=== PATIENT | male | born 1950 | race Caucasian/White ===

== ENCOUNTER 2017-12-07 10:50 | Day surgery (SDC) | payer OTHER | END 2017-12-07 22:35 | disposition home or self-care (01) | LOC: US 10:50 | PROC: 0JB53ZX Excision of Left Neck Subcutaneous Tissue and Fascia, Percutaneous Approach, Diagnostic (ICD-10-PCS; principal; 2017-12-07) | DX: R22.1 Localized swelling, mass and lump, neck (principal) | CPT/HCPCS: 38505; 76942; 88108 ==

== ENCOUNTER 2025-03-18 11:52 | Inpatient (IN) | payer OTHER ==
[~2025-03-18] VITALS: Ht 190.5 cm; Wt 59.0 kg
[~2025-03-18 11:52] MED LIST: ACET500 PO; OXYACE7.5T PO
[2025-03-18 15:00] LABS: BASOPHILS ABSOLUTE AUTO 0.02 K/mm3 (0.00-0.23); BASOPHILS PERCENT AUTO 0 % (0-2); EOSINOPHILS ABSOLUTE AUTO 0.01 K/mm3 (0.00-0.68); EOSINOPHILS PERCENT AUTO 0 % (0-6); Hematocrit 40.2 % (37.0-53.0); Hemoglobin 13.4 g/dL (13.5-17.5); IMMATURE GRAN ABSOLUTE AUTO 0.02 K/mm3 (0.00-0.10); IMMATURE GRAN PERCENT AUTO 0 % (0-1); LYMPHOCYTES ABSOLUTE AUTO 0.41 K/mm3 (0.84-5.20); LYMPHOCYTES PERCENT AUTO 8 % (21-46); MONOCYTES ABSOLUTE AUTO 0.45 K/mm3 (0.16-1.47); MONOCYTES PERCENT AUTO 8 % (4-13); Mean Corpuscular HGB Conc 33.3 g/dL (31.5-36.5); Mean Corpuscular Volume 95 fL (80-100); NEUTROPHILS ABSOLUTE AUTO 4.45 K/mm3 (1.96-9.15); NEUTROPHILS PERCENT AUTO 83 % (41-73); NRBC ABSOLUTE 0.00 K/mm3 (0.00-0.02); NRBC Auto 0.0 /100 WBC (0.0-0.2); Platelet Count 176 K/mm3 (150-400); RDW Coefficient Variation 14.4 % (11.7-14.2); RDW Standard Deviation 50.3 fL (35.1-46.3)
[2025-03-18] MEDS ORDERED: FentaNYL Citrate 50 MCG/ML 2 ML Injection IV PRN ×2 (15:10→22:20)
[2025-03-18 15:21] LABS: Alanine Aminotransfer (ALT/SGP 373 U/L (12-78); Albumin, Blood 3.3 g/dL (3.4-5.0); Albumin/Globulin Ratio 0.8 (0.8-1.8); Anion Gap 17 mmol/L (3-11); Aspartate Aminotrans (AST/SGOT 583 U/L (12-37); Bilirubin, Total 0.5 mg/dL (0.1-1.0); Blood Urea Nitrogen 24 mg/dL (8-24); CO2, Blood 24 mmol/L (21-32); Calcium, Blood 9.3 mg/dL (8.5-10.1); Chloride, Blood 96 mmol/L (98-108); Creatinine, Blood 0.91 mg/dL (0.60-1.20); Globulin, Blood 3.9 g/dL (2.2-4.0); Glucose, Blood 80 mg/dL (70-99); Potassium, Blood 3.9 mmol/L (3.5-5.5); Sodium, Blood 133 mmol/L (136-145); Total Protein, Blood 7.2 g/dL (6.4-8.2)
[2025-03-18] MEDS ORDERED: FentaNYL Citrate 50 MCG/ML 2 ML Injection IV ONE (17:30)
[2025-03-18] MEDS ORDERED: NS 1,000 ML IV SCH ×2 (19:10→23:00)
[2025-03-18] MEDS ORDERED: Metoclopramide HCl 5MG / ML 2ML Vial IV ONE (20:35)
[2025-03-18 21:11] LABS: Source, Urine Clean Catch
[2025-03-18 21:24] LABS: Bilirubin, Urine Neg (Neg); Color, Urine Yellow (P-Yellow); Glucose Qualitative, Urine Neg (Neg); Ketones, Urine 4+ (Neg); Leukocyte Esterase, Urine Neg (Neg); Protein, Urine 2+ (Neg); Specific Gravity, Urine 1.020 (1.003-1.022); Urobilinogen, Urine NORM (Normal)
[2025-03-18 21:35] LABS: White Blood Cells, Urine Not Seen /hpf (0-5)
[2025-03-18] MEDS ORDERED: HydrALAZINE HCl 20 MG / ML 1ML Vial IV PRN (22:20)
[2025-03-18] MEDS ORDERED: Metoclopramide HCl 5MG / ML 2ML Vial IV PRN (22:20)
[2025-03-18] MEDS ORDERED: Naloxone HCl 0.4MG / ML 1ML Vial IV PRN (22:20)
[2025-03-18] MEDS ORDERED: Ondansetron HCl 2 MG / ML 2ML Vial IV PRN (22:25)
[2025-03-18] MEDS ORDERED: Ketorolac Tromethamine 15mg Vial IV PRN (22:35)
[2025-03-18 22:38] LABS: Acetaminophen, Random <2.0 ug/mL (10.0-30.0); Ethanol (Alcohol), Blood, Med <3 mg/dL
[2025-03-19 00:46] LABS: U Amphetamine Screen Not Detected; U Barbituate Screen Not Detected; U Benzodiazapine Screen Not Detected; U Buprenorphine Screen Not Detected; U Cannabinoids Screen DETECTED; U Cocaine Screen Not Detected; U Methadone Screen Not Detected; U Methamphetamine Screen Not Detected; U Opiates Screen Not Detected; U Oxycodone Screen Not Detected; U Phencyclidine Screen Not Detected
[2025-03-19 03:34] VITALS: BP 175/99
[2025-03-19] MEDS ORDERED: BACL10 PO (04:42)
[2025-03-19] MEDS ORDERED: PRAZ2 PO (04:42)
[2025-03-19] MEDS ORDERED: TRAZ100 PO (04:43)
[2025-03-19] MEDS ORDERED: Atarax10 MG PO (04:44)
[2025-03-19 05:32] LABS: BASOPHILS ABSOLUTE AUTO 0.03 K/mm3 (0.00-0.23); BASOPHILS PERCENT AUTO 0 % (0-2); EOSINOPHILS ABSOLUTE AUTO 0.01 K/mm3 (0.00-0.68); EOSINOPHILS PERCENT AUTO 0 % (0-6); Hematocrit 44.4 % (37.0-53.0); Hemoglobin 14.9 g/dL (13.5-17.5); IMMATURE GRAN ABSOLUTE AUTO 0.05 K/mm3 (0.00-0.10); IMMATURE GRAN PERCENT AUTO 1 % (0-1); LYMPHOCYTES ABSOLUTE AUTO 0.51 K/mm3 (0.84-5.20); LYMPHOCYTES PERCENT AUTO 6 % (21-46); MONOCYTES ABSOLUTE AUTO 0.66 K/mm3 (0.16-1.47); MONOCYTES PERCENT AUTO 8 % (4-13); Mean Corpuscular HGB Conc 33.6 g/dL (31.5-36.5); Mean Corpuscular Volume 92 fL (80-100); NEUTROPHILS ABSOLUTE AUTO 7.02 K/mm3 (1.96-9.15); NEUTROPHILS PERCENT AUTO 85 % (41-73); NRBC ABSOLUTE 0.00 K/mm3 (0.00-0.02); NRBC Auto 0.0 /100 WBC (0.0-0.2); Platelet Count 228 K/mm3 (150-400); RDW Coefficient Variation 14.2 % (11.7-14.2); RDW Standard Deviation 48.8 fL (35.1-46.3)
[2025-03-19 05:57] LABS: Alanine Aminotransfer (ALT/SGP 440.0 U/L (12-78); Albumin, Blood 3.7 g/dL (3.4-5.0); Albumin/Globulin Ratio 0.9 (0.8-1.8); Anion Gap 19.0 mmol/L (3-11); Aspartate Aminotrans (AST/SGOT 717.0 U/L (12-37); Bilirubin, Total 0.7 mg/dL (0.1-1.0); Blood Urea Nitrogen 20.0 mg/dL (8-24); CO2, Blood 20.0 mmol/L (21-32); Calcium, Blood 9.8 mg/dL (8.5-10.1); Chloride, Blood 98.0 mmol/L (98-108); Creatinine, Blood 0.74 mg/dL (0.60-1.20); Globulin, Blood 4.1 g/dL (2.2-4.0); Glucose, Blood 61.0 mg/dL (70-99); Magnesium, Blood 1.8 mg/dL (1.6-2.4); Potassium, Blood 3.9 mmol/L (3.5-5.5); Sodium, Blood 133.0 mmol/L (136-145); Total Protein, Blood 7.8 g/dL (6.4-8.2)
[2025-03-19 07:09] VITALS: BP 176/98
[2025-03-19] MEDS ORDERED: OxyCODONE 7.5 mg/Acetam 325 mg TABLET PO PRN (08:15)
[2025-03-19 08:45] LABS: CHOL/HDL RATIO 3.5; Cholesterol 241 mg/dL (50-200); HDL Cholesterol 69 mg/dL (>39); LDL/HDL RATIO 2.1; Low Density Lipoprotein Chol 145 mg/dL (0-110); Triglycerides 133 mg/dL (30-160); Very Low Density Lipoprot Chol 26 mg/dL (6-32)
[2025-03-19 08:53] LABS: Prothrombin Time Results 12.1 Sec (9.7-11.5)
[2025-03-19] MEDS ORDERED: Enoxaparin 40 MG/0.4 ML SYR SC SCH (09:00)
[2025-03-19] MEDS ORDERED: Amlodipine Bes2.5 MG PO (12:12)
[2025-03-19] MEDS ORDERED: ALBU90OI INH (12:12)
[2025-03-19] MEDS ORDERED: THERA-D2000 UNIT PO (12:14)
[2025-03-19] MEDS ORDERED: GABA100 PO (12:30)
[2025-03-19] MEDS ORDERED: [UNRECOGNIZED DRUG - CODE] (12:30)
[2025-03-19] MEDS ORDERED: LEVSOD137 PO (12:31)
[2025-03-19] MEDS ORDERED: OMEP20ER PO (12:32)
[2025-03-19] MEDS ORDERED: MULVITA PO (12:32)
[2025-03-19] MEDS ORDERED: MAGNESIUM OXID500 MG PO (12:32)
[2025-03-19] MEDS ORDERED: SERT100 PO (12:33)
[2025-03-19] MEDS ORDERED: MIRALAX17 GM PO (12:33)
[2025-03-19] MEDS ORDERED: [UNRECOGNIZED DRUG - OTHER] TOP (12:35)
[2025-03-19] MEDS ORDERED: STIOLTO RESPIMAT4 G1 INH (12:36)
[2025-03-19] MEDS ORDERED: Magnesium Hydroxide Conc 10 ML UDC PO PRN (16:00)
[2025-03-19] MEDS ORDERED: Magnesium Hydroxide Conc 10 ML UDC PO ONE (16:00)
--- NOTE | 2025-03-19 17:06 | NUR ---
SHIFT SUMMARY CLIENT AOX3-4. MEDICATION COMPLIANT. EXPERIENCING URINARY FREQUENCY. IV NORMAL SALINE CONTINUES AT 100ML/HR. CLIENT STATUS CHANGED TO DNR. CLIENT ORDERED PHENERGAN SUPPOSITORIES TO BE GIVEN PRIOR TO ORAL MEDICATION ADMINISTRATION. CLIENT SEEN BY VOLUTEER FROM [place] AND HAD FAMILY IN ROOM MOST OF THE SHIFT. BED IS IN LOW POSITION AND CALL LIGHT IS WITHIN REACH.
[2025-03-19 19:23] VITALS: BP 187/103
[2025-03-19 19:59] VITALS: BP 182/93
--- NOTE | 2025-03-19 22:56 | NUR ---
NURSING NOTE: PT AOX4 AND REQUESTS TO HAVE ALL BED RAILS UP SO HE CAN BOOST AND MOVE IN BED. CONTINUING CARE.
--- NOTE | 2025-03-20 05:21 | NUR ---
SHIFT SUMMARY: PT AOX4 BED REST ABLE TO ASSIST IN TURNS. CALLS APPROPRIATELY AND ABLE TO MAKE NEEDS KNOWN. PT CONT/ INCONT BUT IS ABLE TO KNOW WHEN HE NEEDS TO BE CHANGED. HAS TROUBLE WITH PO INTAKE AND SWALLOWING LARGER PILLS. SMALL SIPS AND SMALL PILLS GIVEN. STATES HE CANT TOLERATE THE CAPSULES OR MIXING WITH APPLESAUCE OF MEDS. COMPLAINS OF HICCUPS AND ACID REFLUX WITH WATER PO. WAS ABLE TO VOID AND CHANGED. PT WAS ABLE TO SLEEP THROUGH THE NIGHT. SEEMS TO BE ANXIOUS/ SOME EMOTIONAL DISTRESS OVER CONDITION BUT IS AGREEABLE TO HOSPICE. PT IN BED SLEEPING, BED IN LOWEST POSITION, CALL LIGHT IN REACH. CONTINUING CARE.
[2025-03-20 06:32] VITALS: BP 162/88
[2025-03-20 07:09] VITALS: BP 165/75
[2025-03-20 08:44] LABS: BASOPHILS ABSOLUTE AUTO 0.02 K/mm3 (0.00-0.23); BASOPHILS PERCENT AUTO 0 % (0-2); EOSINOPHILS ABSOLUTE AUTO 0.02 K/mm3 (0.00-0.68); EOSINOPHILS PERCENT AUTO 0 % (0-6); Hematocrit 41.1 % (37.0-53.0); Hemoglobin 13.8 g/dL (13.5-17.5); IMMATURE GRAN ABSOLUTE AUTO 0.05 K/mm3 (0.00-0.10); IMMATURE GRAN PERCENT AUTO 1 % (0-1); LYMPHOCYTES ABSOLUTE AUTO 0.53 K/mm3 (0.84-5.20); LYMPHOCYTES PERCENT AUTO 7 % (21-46); MONOCYTES ABSOLUTE AUTO 0.70 K/mm3 (0.16-1.47); MONOCYTES PERCENT AUTO 9 % (4-13); Mean Corpuscular HGB Conc 33.6 g/dL (31.5-36.5); Mean Corpuscular Volume 92 fL (80-100); NEUTROPHILS ABSOLUTE AUTO 6.27 K/mm3 (1.96-9.15); NEUTROPHILS PERCENT AUTO 83 % (41-73); NRBC ABSOLUTE 0.00 K/mm3 (0.00-0.02); NRBC Auto 0.0 /100 WBC (0.0-0.2); Platelet Count 174 K/mm3 (150-400); RDW Coefficient Variation 14.7 % (11.7-14.2); RDW Standard Deviation 50.0 fL (35.1-46.3)
[2025-03-20 09:04] LABS: Alanine Aminotransfer (ALT/SGP 562.0 U/L (12-78); Albumin, Blood 3.3 g/dL (3.4-5.0); Albumin/Globulin Ratio 0.9 (0.8-1.8); Anion Gap 16.0 mmol/L (3-11); Aspartate Aminotrans (AST/SGOT 965.0 U/L (12-37); Bilirubin, Total 0.8 mg/dL (0.1-1.0); Blood Urea Nitrogen 19.0 mg/dL (8-24); CO2, Blood 21.0 mmol/L (21-32); Calcium, Blood 9.4 mg/dL (8.5-10.1); Chloride, Blood 103.0 mmol/L (98-108); Creatinine, Blood 0.71 mg/dL (0.60-1.20); Globulin, Blood 3.6 g/dL (2.2-4.0); Glucose, Blood 67.0 mg/dL (70-99); Potassium, Blood 3.4 mmol/L (3.5-5.5); Sodium, Blood 137.0 mmol/L (136-145); Total Protein, Blood 6.9 g/dL (6.4-8.2)
--- NOTE | 2025-03-20 14:42 | NUR ---
Spiritual Care Visit. Pt. is awake in bed dressed awaiting transport home. Spouse is at bedside when they welcome my visit. Facilitate an update. Family does not disclose any particular keegan background, but a measure of rapport is establised through a life review. Pt. verbalizes concern about discomfort on the ambulance gurney of the ride home. With empathy and a calming presence this kiln tester seeks to normalize the Pt. experience. Pt. displayed evidence of agreement. Prayed with the Pt. Pt. and spouse both verbalize gratitude for the spiritual care visit.
[2025-03-20 16:31] LABS: HEPATITIS A ANTIBODY, IGM Negative (Negative); HEPATITIS C AB CIA INTERP Low Pos (Negative); HEPATITIS C ANTIBODY CIA INDEX 1.55 IV
[2025-03-21 20:43] LABS: HCV QNT BY NAAT (IU/ML) Not Detected; HCV QNT BY NAAT (LOG IU/ML) Not Detected; HCV QNT BY NAAT INTERP Not Detected (Not Detected)
== END 2025-03-20 15:15 | disposition hospice, home (50) | DRG 947 ==
LOC: ER 11:52 → ERHOLD 11:53 → MEDS 11:53
PROVIDERS: Family Medicine; Student in an Organized Health Care Education/Training Program; ADMIT Student in an Organized Health Care Education/Training Program
DX: R74.01 Elevation of levels of liver transaminase levels (principal); E43 Unspecified severe protein-calorie malnutrition; R64 Cachexia; Z68.1 Body mass index [BMI] 19.9 or less, adult; R13.10 Dysphagia, unspecified; R62.7 Adult failure to thrive; I10 Essential (primary) hypertension; Z51.5 Encounter for palliative care; J44.9 Chronic obstructive pulmonary disease, unspecified; D64.9 Anemia, unspecified; D72.810 Lymphocytopenia; F51.5 Nightmare disorder; F43.12 Post-traumatic stress disorder, chronic; M62.838 Other muscle spasm; Z79.899 Other long term (current) drug therapy; Z79.891 Long term (current) use of opiate analgesic; Z88.0 Allergy status to penicillin
CPT/HCPCS: 36415; 71046; 74177; 76705; 80053; 80061; 80074; 80320; 81001; 83036; 83605; 83690; 83735; 85025; 85610; 85730; 87522; 93005; 93010; 96361; 96372; 96376; 99285-25; A9270; G0378; G0480; J0360; J1650; J2405; J2765; J3010; J7030; Q9967